=== PATIENT | male | born 1960 | race Caucasian/White ===

== ENCOUNTER 2016-09-11 03:19 | Emergency (ER) | payer MEDICAID ==
[~2016-09-11 03:19] MED LIST: ceFAZolin 2 GM PREMIX 50 ML ONE
[2016-09-11] MEDS ORDERED: DIPHTH/TETANUS/ACEL PERTUSSIS (BOOSTER) 0.5 ML VIAL/PFS IM ONE (03:25)
[2016-09-11] MEDS ORDERED: LIDOCAINE 1%/EPINEPHrine 1:100,000 SOLN 30 ML VIAL ONE (03:25)
[2016-09-11 03:30] VITALS: O2SAT 99
[2016-09-11 03:49] LABS: I-STAT POTASSIUM 4.4 MMOL/L (3.5-4.9)
[2016-09-11 03:50] LABS: BASOPHIL # 0.1 TH/MM3 (0-0.2); BASOPHIL % 1.4 % (0.0-2.0); EOSINOPHIL # 0.2 TH/MM3 (0-0.4); EOSINOPHIL % 2.3 % (0.0-4.0); HEMATOCRIT 41.6 % (39.0-51.0); HEMO FLAGS DIFF FINAL; LYMPH % 24.1 % (9.0-44.0); LYMPHOCYTE # 2.2 TH/MM3 (1.0-4.8); MEAN CELL VOLUME 99.7 FL (80.0-100.0); MEAN CORPUSCULAR HEMOGLOBIN 34.8 PG (27.0-34.0); MEAN CORPUSCULAR HGB CONC 34.9 % (32.0-36.0); MONO % 6.6 % (0.0-8.0); NEUT % 65.6 % (16.0-70.0); PLATELET COUNT 274 TH/MM3 (150-450); RED BLOOD COUNT 4.17 MIL/MM3 (4.50-5.90); WHITE BLOOD COUNT 9.1 TH/MM3 (4.0-11.0)
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
[2016-09-11 04:14] LABS: APTT (PATIENT) 25.2 SEC (24.3-30.1); INTERNATIONAL NORMALIZED RATIO 0.9 RATIO; PROTHROMBIN TIME - PATIENT 9.9 SEC (9.8-11.6)
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
[2016-09-11 05:25] VITALS: BP 130/74
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
== END 2016-09-11 05:26 | disposition home or self-care (01) ==
LOC: EDBD 03:19 → NEPI 03:19 → NEPE 05:26
DX: S41.012A Laceration without foreign body of left shoulder, initial encounter (principal); S01.01XA Laceration without foreign body of scalp, initial encounter; S01.511A Laceration without foreign body of lip, initial encounter; Z72.0 Tobacco use; X99.8XXA Assault by other sharp object, initial encounter
CPT/HCPCS: 12014; 70450; 70486; 71010; 82435; 82565; 82947; 84132; 84295; 84520; 85025; 85610; 85730; 86850; 86900; 86901; 90471; 90715; 96374; 99291; J0690; G0390

== ENCOUNTER 2016-09-29 20:11 | Emergency (ER) | payer MEDICAID, OTHER ==
[~2016-09-29] VITALS: Ht 182.9 cm; Wt 75.0 kg
[2016-09-29 20:29] VITALS: BP 141/74; PULSE 91; RESP 16; TEMP 98.5; O2SAT 98
[2016-09-29] MEDS ORDERED: TRAZ50TA12 PO (20:40)
[2016-09-29] MEDS ORDERED: VENTAER INH (20:40)
[2016-09-29] MEDS ORDERED: REME15TA PO (20:40)
[2016-09-29 20:44] LABS: AUTOMATED NEUTROPHIL # 5.9 TH/MM3 (1.8-7.7); BASOPHIL # 0.4 TH/MM3 (0-0.2); BASOPHIL % 3.8 % (0.0-2.0); EOSINOPHIL # 0.2 TH/MM3 (0-0.4); EOSINOPHIL % 1.7 % (0.0-4.0); HEMATOCRIT 38.4 % (39.0-51.0); LYMPH % 23.7 % (9.0-44.0); LYMPHOCYTE # 2.2 TH/MM3 (1.0-4.8); MEAN CELL VOLUME 99.8 FL (80.0-100.0); MEAN CORPUSCULAR HEMOGLOBIN 34.8 PG (27.0-34.0); MEAN CORPUSCULAR HGB CONC 34.9 % (32.0-36.0); MONO % 7.5 % (0.0-8.0); NEUT % 63.3 % (16.0-70.0); PLATELET COUNT 321 TH/MM3 (150-450); RED BLOOD COUNT 3.84 MIL/MM3 (4.50-5.90); RED CELL DISTRIBUTION WIDTH 15.2 % (11.6-17.2); WHITE BLOOD COUNT 9.4 TH/MM3 (4.0-11.0)
[2016-09-29 20:48] LABS: AMPHETAMINE, URINE NEG (NEG); BARBITURATES, URINE NEG (NEG); COCAINE, URINE NEG (NEG); HEMO FLAGS DIFF FINAL
[2016-09-29 21:08] LABS: ANION GAP 12 MEQ/L (5-15); AST (GOT) 56 U/L (15-37); BICARBONATE 23.2 MEQ/L (21.0-32.0); BLOOD UREA NITROGEN 20 MG/DL (7-18); CHLORIDE 102 MEQ/L (98-107); GLOMERULAR FILTRATION RATE 53 ML/MIN (>89); POTASSIUM 4.1 MEQ/L (3.5-5.1); SODIUM (NA) 137 MEQ/L (136-145)
[2016-09-29 21:11] LABS: ALKALINE PHOSPHATASE 77 U/L (45-117); ALT (GPT) 60 U/L (12-78); TOTAL BILIRUBIN ADULT 0.3 MG/DL (0.2-1.0)
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
[2016-09-30 01:01] VITALS: BP 151/87; PULSE 89; RESP 18; TEMP 98.7; O2SAT 98
[2016-09-30 02:22] VITALS: BP 128/75; PULSE 88; RESP 18; O2SAT 98
[2016-09-30 06:15] VITALS: BP 142/69; PULSE 71; RESP 18; TEMP 98.6; O2SAT 99
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
== END 2016-09-30 08:37 | disposition home or self-care (01) ==
LOC: NEPA 20:11 → NEPJ 09-30 08:37
DX: F32.9 Major depressive disorder, single episode, unspecified (principal); F10.10 Alcohol abuse, uncomplicated; J44.9 Chronic obstructive pulmonary disease, unspecified; I10 Essential (primary) hypertension; Z72.0 Tobacco use
CPT/HCPCS: 80053; 80307; 80320; 85025; 99285

== ENCOUNTER 2017-02-27 03:11 | Emergency (ER) | payer MEDICAID, OTHER ==
[~2017-02-27 03:11] MED LIST changes: +REME15TA PO; +TRAZ50TA12 PO; +VENTAER INH; -ceFAZolin 2 GM PREMIX 50 ML ONE
--- NOTE | 2017-02-27 03:24 | PD ---
HPI Chief Complaint: psychiatric evaluation Time Seen by Provider: 03:23 Travel History International Travel<30 days: No Contact w/Intl Traveler<30days: No History of Present Illness HPI Patient comes in under Harrell act by police for suicidal ideations. Patient admits to this. Patient reports he was planning on taking all of his blood pressure medication. Patient reports history of suicide attempts. Patient denies any medical concerns this time. Denies any chest pain, shortness breath , nausea, abdominal pain, fevers, or other concerns. Patient denies anything making his symptoms better or worse. PFSH Past Medical History COPD: Yes Hypertension: Yes Past Surgical History Body Medical Devices: STEEL PLATE L. ORBITAL Social History Alcohol Use: Yes Tobacco Use: Yes Substance Use: Yes (ALCOHOL) Allergies-Medications (Allergen,Severity, Reaction): Coded Allergies: No Known Allergies (Unverified , 09/29/16) Reported Meds & Prescriptions Reported Meds & Active Scripts Active Reported Trazodone (Trazodone HCl) 50 Mg Tab 50 Mg PO HS Remeron (Mirtazapine) 15 Mg Tab 15 Mg PO HS Ventolin Hfa 18 GM Inh (Albuterol Sulfate) 90 Mcg/Act Aer 2 Puff INH Q4-6H PRN Review of Systems ROS Limitations: Intoxication Except as stated in HPI: all other systems reviewed are Neg Physical Exam Exam Limitations: Intoxication Narrative GENERAL: Well-developed, overly nourished, in no acute distress, and non-ill appearing. SKIN: Focused skin assessment warm and dry. HEAD: Atraumatic. Normocephalic. EYES: Pupils equal and round. EOMI. No scleral icterus. No injection or drainage. ENT: No nasal bleeding or discharge. Mucous membranes pink and moist. NECK: Trachea midline. Supple. No nuclear rigidity. CARDIOVASCULAR: Regular rate and rhythm. No murmur appreciated. RESPIRATORY: No accessory muscle use. No respiratory distress. Clear to auscultation. Breath sounds equal bilaterally. MUSCULOSKELETAL: No obvious deformities. No clubbing. No cyanosis. No edema. Full range of motion. NEUROLOGICAL: Awake and alert. No obvious cranial nerve deficits. Motor grossly within normal limits. Slurring speech. PSYCHIATRIC: Appropriate mood and affect. Data Data Last Documented VS Vital Signs Date Time Temp Pulse Resp B/P Pulse Ox O2 Delivery O2 Flow Rate FiO2 02/27/17 03:29 97.7 91 16 109/64 95 Orders Complete Blood Count With Diff (02/27/17 03:22) Comprehensive Metabolic Panel (02/27/17 03:22) Psych Screen (02/27/17 03:22) Drug Screen, Random Urine (02/27/17 03:22) Alcohol (Ethanol) (02/27/17 03:22) Salicylates (Aspirin) (02/27/17 03:22) Tylenol (Acetaminophen) (02/27/17 03:22) Labs Laboratory Tests Test 02/27/17 02/27/17 03:45 03:55 White Blood Count 11.1 TH/MM3 Red Blood Count 3.63 MIL/MM3 Hemoglobin 12.6 GM/DL Hematocrit 36.3 % Mean Corpuscular Volume 100.1 FL Mean Corpuscular Hemoglobin 34.8 PG Mean Corpuscular Hemoglobin 34.8 % Concent Red Cell Distribution Width 14.1 % Platelet Count 354 TH/MM3 Mean Platelet Volume 7.4 FL Neutrophils (%) (Auto) 55.8 % Lymphocytes (%) (Auto) 31.5 % Monocytes (%) (Auto) 9.2 % Eosinophils (%) (Auto) 2.1 % Basophils (%) (Auto) 1.4 % Neutrophils # (Auto) 6.2 TH/MM3 Lymphocytes # (Auto) 3.5 TH/MM3 Monocytes # (Auto) 1.0 TH/MM3 Eosinophils # (Auto) 0.2 TH/MM3 Basophils # (Auto) 0.2 TH/MM3 CBC Comment DIFF FINAL Differential Comment Sodium Level 139 MEQ/L Potassium Level 3.9 MEQ/L Chloride Level 108 MEQ/L Carbon Dioxide Level 19.4 MEQ/L Anion Gap 12 MEQ/L Blood Urea Nitrogen 20 MG/DL Creatinine 1.27 MG/DL Estimat Glomerular Filtration 58 ML/MIN Rate Random Glucose 81 MG/DL Calcium Level 9.3 MG/DL Total Bilirubin LESS THAN 0.1 MG/DL Aspartate Amino Transf 30 U/L (AST/SGOT) Alanine Aminotransferase 37 U/L (ALT/SGPT) Alkaline Phosphatase 73 U/L Total Protein 7.7 GM/DL Albumin 3.6 GM/DL Salicylates Level 6.0 MG/DL Acetaminophen Level LESS THAN 2.0 MCG/ML Ethyl Alcohol Level 307 MG/DL Urine Opiates Screen NEG Urine Barbiturates Screen NEG Urine Amphetamines Screen NEG Urine Benzodiazepines Screen NEG Urine Cocaine Screen NEG Urine Cannabinoids Screen NEG MDM Medical Decision Making Medical Screen Exam Complete: Yes Emergency Medical Condition: Yes Differential Diagnosis Homicidal, suicidal, alcohol intoxication, substance abuse, other Narrative Course Patient was seen and examined. Labs were obtained and reviewed. Patient medically cleared for further treatment and evaluation by psych. Final disposition per psych. Diagnosis Primary Impression: Alcohol intoxication Qualified Code: F10.920 - Alcohol intoxication, uncomplicated Additional Impression: Medical clearance for psychiatric admission Condition: Stable Terrell Tang Feb 27, 2017 03:24
[2017-02-27 03:29] VITALS: BP 109/64; PULSE 91; RESP 16; TEMP 97.7; O2SAT 95
[2017-02-27 04:02] LABS: AUTOMATED NEUTROPHIL # 6.2 TH/MM3 (1.8-7.7); BASOPHIL # 0.2 TH/MM3 (0-0.2); BASOPHIL % 1.4 % (0.0-2.0); EOSINOPHIL # 0.2 TH/MM3 (0-0.4); EOSINOPHIL % 2.1 % (0.0-4.0); HEMATOCRIT 36.3 % (39.0-51.0); HEMO FLAGS DIFF FINAL; LYMPH % 31.5 % (9.0-44.0); LYMPHOCYTE # 3.5 TH/MM3 (1.0-4.8); MEAN CELL VOLUME 100.1 FL (80.0-100.0); MEAN CORPUSCULAR HEMOGLOBIN 34.8 PG (27.0-34.0); MEAN CORPUSCULAR HGB CONC 34.8 % (32.0-36.0); MONO % 9.2 % (0.0-8.0); NEUT % 55.8 % (16.0-70.0); PLATELET COUNT 354 TH/MM3 (150-450); RED BLOOD COUNT 3.63 MIL/MM3 (4.50-5.90); RED CELL DISTRIBUTION WIDTH 14.1 % (11.6-17.2); WHITE BLOOD COUNT 11.1 TH/MM3 (4.0-11.0)
[2017-02-27 04:24] LABS: ALKALINE PHOSPHATASE 73 U/L (45-117); TOTAL BILIRUBIN ADULT LESS THAN 0.1 MG/DL (0.2-1.0)
[2017-02-27 04:34] LABS: AMPHETAMINE, URINE NEG (NEG); BARBITURATES, URINE NEG (NEG); COCAINE, URINE NEG (NEG)
[2017-02-27 04:42] LABS: ALT (GPT) 37 U/L (12-78); ANION GAP 12 MEQ/L (5-15); AST (GOT) 30 U/L (15-37); BICARBONATE 19.4 MEQ/L (21.0-32.0); BLOOD UREA NITROGEN 20 MG/DL (7-18); CHLORIDE 108 MEQ/L (98-107); GLOMERULAR FILTRATION RATE 58 ML/MIN (>89); POTASSIUM 3.9 MEQ/L (3.5-5.1); SODIUM (NA) 139 MEQ/L (136-145)
[2017-02-27 04:45] LABS: ACETAMINOPHEN LESS THAN 2.0 MCG/ML (10.0-30.0)
[2017-02-27] MEDS ORDERED: LORazepam 2 MG TAB PO PRN (05:00)
[2017-02-27] MEDS ORDERED: LORazepam 1 MG TAB PO PRN (05:00)
[2017-02-27] MEDS ORDERED: LORazepam 2 MG/ML VIAL IV PUSH PRN ×4 (05:00)
[2017-02-27] MEDS ORDERED: FLUMAZENIL 0.5 MG/5 ML VIAL IV PUSH PRN (05:00)
[2017-02-27 06:17] VITALS: BP 112/74; PULSE 69; RESP 16; O2SAT 100
[2017-02-27 13:18] VITALS: BP 115/78; PULSE 78; RESP 18; O2SAT 97
[2017-02-27] MEDS ORDERED: AMLO5CAP3 PO (14:34)
[2017-02-27] MEDS ORDERED: LISI-515 PO (14:34)
[2017-02-27 22:04] VITALS: BP 160/91; PULSE 72; RESP 18; O2SAT 98
[2017-02-28] MEDS ORDERED: ACETAMINOPHEN 500 MG CPLT PO ONE (02:15)
[2017-02-28 02:40] VITALS: BP 181/100; PULSE 92; RESP 18; O2SAT 99
[2017-02-28 04:14] VITALS: BP 145/90; PULSE 98; RESP 18; O2SAT 98
[2017-02-28 06:14] VITALS: BP 152/81; PULSE 78; RESP 17; O2SAT 99
[2017-02-28 10:00] VITALS: BP 184/96; PULSE 72; RESP 18
[2017-02-28 14:10] VITALS: BP 142/90; TEMP 97.3
--- NOTE | 2017-02-28 15:27 | PD.PSY.CON ---
Provisional Diagnosis Admission Date Woodward I. Alcohol induced mood disorder, alcohol use disorder, history of PTSD, Woodward II. Deferred Woodward III. No significant medical his History of Present Illness Service Psychiatry Consult Requested By Primary Care Physician Unknown HPI The patient is a 56-year-old man, domiciled alone in [place], unemployed, on SSI, with secondary history of PTSD, alcohol use disorder, multiple psychiatric hospitalizations, previous suicidal attempts, he is on Remeron 30 mg, [id number] mg prescribed by PCP no significant medical history. Patient comes in under Harrell act by police for suicidal ideations. Patient admits to this. Patient reports he was planning on taking all of his blood pressure medication. However today on psychiatric evaluation patient reports that yesterday he was just drunk, he has recently ended a relationship with his boyfriend and he has been feeling down, yesterday his best friend didn' t come to visit and support him and he feels rejected. He admits that he was drunk. Now he feels much better, denies suicidal ideation, denies visual and auditory hallucinations. Oriented 3. Review of Systems Constitutional: DENIES: Diaphoretic episodes, Fatigue, Fever, Weight gain, Weight loss, Chills, Dizziness, Change in appetite, Night Sweats Endocrine: DENIES: Heat/cold intolerance, Polydipsia, Polyuria, Polyphagia Eyes: DENIES: Blurred vision, Diplopia, Eye inflammation, Eye pain, Vision loss , Photosensitivity, Double Vision Ears, nose, mouth, throat: DENIES: Tinnitus, Hearing loss, Vertigo, Nasal discharge, Oral lesions, Throat pain, Hoarseness, Ear Pain, Running Nose, Epistaxis, Sinus Pain, Toothache, Odynophagia Respiratory: DENIES: Apneas, Cough, Snoring, Wheezing, Hemoptysis, Sputum production, Shortness of breath Cardiovascular: DENIES: Chest pain, Palpitations, Syncope, Dyspnea on Exertion , PND, Lower Extremity Edema, Orthopnea, Claudication Gastrointestinal: DENIES: Abdominal pain, Black stools, Bloody stools, Constipation, Diarrhea, Nausea, Vomiting, Difficulty Swallowing, Anorexia Genitourinary: DENIES: Sexual dysfunction, Urinary frequency, Urinary incontinence, Urgency, Hematuria, Dysuria, Nocturia, Penile Discharge, Testicular Pain, Testicular Swelling Musculoskeletal: DENIES: Joint pain, Muscle aches, Stiffness, Joint Swelling, Back pain, Neck pain Integumentary: DENIES: Abnormal pigmentation, Nail changes, Pruritus, Rash Hematologic/lymphatic: DENIES: Bruising, Lymphadenopathy Immunologic/allergic: DENIES: Eczema, Urticaria Neurologic: DENIES: Abnormal gait, Headache, Localized weakness, Paresthesias, Seizures, Speech Problems, Tremor, Poor Balance Psychiatric: DENIES: Anxiety, Confusion, Mood changes, Depression, Hallucinations, Agitation, Suicidal Ideation, Homicidal Ideation, Delusions Past Family Social History Coded Allergies: No Known Allergies (Unverified , 09/29/16) Reported Medications Amlodipine-Benazepril 5-20 Mg Cap1 Cap PO DAILY #30 CAP Ref 0 02/27/17 Lisinopril 20 Mg Tab20 Mg PO DAILY #30 TAB Ref 0 02/27/17 Trazodone 50 Mg Tab50 Mg PO HS #30 TAB Ref 0 09/29/16 Mirtazapine (Remeron)15 Mg Tab15 Mg PO HS #30 TAB Ref 0 09/29/16 Albuterol 18 GM Inh (Ventolin Hfa 18 GM Inh)90 Mcg/Act Aer2 Puff INH Q4-6H PRN ( SHORTNESS OF BREATH) #1 INHALER Ref 0 09/29/16 Current Medications Medications (Trade) Dose Ordered Sig/Johnnie Route Start Time Stop Time Status Last Admin (Romazicon Inj) 0.2 mg Q1M PRN IV PUSH 02/27/17 05:00 (Ativan) 1 mg Q4H PRN PO 02/27/17 05:00 (Ativan Inj) 1 mg Q4H PRN IV PUSH 02/27/17 05:00 (Ativan) 2 mg Q2H PRN PO 02/27/17 05:00 02/28/17 02:48 (Ativan Inj) 2 mg Q2H PRN IV PUSH 02/27/17 05:00 (Ativan Inj) 2 mg Q1H PRN IV PUSH 02/27/17 05:00 (Ativan Inj) 2 mg Q15M PRN IV PUSH 02/27/17 05:00 Family History He denies family significant history Social History Patient was born in [facility], he is in [place] alone, is unemployed, on SSI Patient's Strengths (min. 2) Verbal communication Physical Exam Vital Signs Vital Signs Date Time Temp Pulse Resp B/P Pulse Ox O2 Delivery O2 Flow Rate FiO2 02/28/17 14:10 97.3 88 20 142/90 02/28/17 10:00 Room Air 02/28/17 06:14 99 Lab Results Labs Laboratory Tests Test 02/27/17 02/27/17 03:45 03:55 White Blood Count 11.1 TH/MM3 Red Blood Count 3.63 MIL/MM3 Hemoglobin 12.6 GM/DL Hematocrit 36.3 % Mean Corpuscular Volume 100.1 FL Mean Corpuscular Hemoglobin 34.8 PG Mean Corpuscular Hemoglobin 34.8 % Concent Red Cell Distribution Width 14.1 % Platelet Count 354 TH/MM3 Mean Platelet Volume 7.4 FL Neutrophils (%) (Auto) 55.8 % Lymphocytes (%) (Auto) 31.5 % Monocytes (%) (Auto) 9.2 % Eosinophils (%) (Auto) 2.1 % Basophils (%) (Auto) 1.4 % Neutrophils # (Auto) 6.2 TH/MM3 Lymphocytes # (Auto) 3.5 TH/MM3 Monocytes # (Auto) 1.0 TH/MM3 Eosinophils # (Auto) 0.2 TH/MM3 Basophils # (Auto) 0.2 TH/MM3 CBC Comment DIFF FINAL Differential Comment Sodium Level 139 MEQ/L Potassium Level 3.9 MEQ/L Chloride Level 108 MEQ/L Carbon Dioxide Level 19.4 MEQ/L Anion Gap 12 MEQ/L Blood Urea Nitrogen 20 MG/DL Creatinine 1.27 MG/DL Estimat Glomerular Filtration 58 ML/MIN Rate Random Glucose 81 MG/DL Calcium Level 9.3 MG/DL Total Bilirubin LESS THAN 0.1 MG/DL Aspartate Amino Transf 30 U/L (AST/SGOT) Alanine Aminotransferase 37 U/L (ALT/SGPT) Alkaline Phosphatase 73 U/L Total Protein 7.7 GM/DL Albumin 3.6 GM/DL Salicylates Level 6.0 MG/DL Acetaminophen Level LESS THAN 2.0 MCG/ML Ethyl Alcohol Level 307 MG/DL Urine Opiates Screen NEG Urine Barbiturates Screen NEG Urine Amphetamines Screen NEG Urine Benzodiazepines Screen NEG Urine Cocaine Screen NEG Urine Cannabinoids Screen NEG Mental Status Examination Appearance man, [facility], age appearing, cooperative and calm Speech: Unremarkable Memory: Unremarkable Thought Process: Logical Thought Content: Unremarkable Hallucination Type: None Suicidal Ideation: No Previous Suicide Attempts: Yes Homicidal Ideation: No Previous Homicide Attempts: No Judgment: WNL Affect: Good Mood: Euthymic Motor Activity: Normal gait Assessment & Plan Problem List: (1) Alcohol-induced mood disorder Assessment & Plan: At the moment of this evaluation the patient does not present any acute psychiatric symptoms that require an immediate psychiatric intervention or hospitalization. Harrell act would be lifted. ICD Code: F10.94 Assessment & Plan Estimated LOS: Bhargav Bowman MD Feb 28, 2017 15:27
== END 2017-02-28 14:15 | disposition home or self-care (01) ==
LOC: NEPD 03:11 → NEPJ 02-28 14:15
DX: F10.920 Alcohol use, unspecified with intoxication, uncomplicated (principal); I10 Essential (primary) hypertension; Y90.8 Blood alcohol level of 240 mg/100 ml or more; Z72.0 Tobacco use; Z79.899 Other long term (current) drug therapy
CPT/HCPCS: 80053; 80307; 85025; 99283

== ENCOUNTER 2017-07-22 01:46 | Emergency (ER) | payer MEDICAID, OTHER ==
[~2017-07-22] VITALS: Ht 185.4 cm; Wt 82.0 kg
[~2017-07-22 01:46] MED LIST changes: +AMLO5CAP3 PO; +LISI-515 PO
[2017-07-22 02:01] VITALS: BP 154/104; PULSE 106; RESP 16; O2SAT 100
[2017-07-22] MEDS ORDERED: HALOPERIDOL LACTATE 5 MG/ML AMP IM ONE (02:15)
[2017-07-22] MEDS ORDERED: LORazepam 2 MG/ML VIAL IM ONE (02:15)
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
[2017-07-22 06:26] VITALS: BP 175/90; PULSE 88; RESP 18; TEMP 98.5; O2SAT 97
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
--- NOTE | 2017-07-22 10:30 | PD ---
Physical Exam Time Seen by Provider: 10:28 Narrative HARITHA Miguel has evaluated the patient, but the Sharri act and cleared the patient for discharge. Data Data Last Documented VS Vital Signs Date Time Temp Pulse Resp B/P (MAP) Pulse Ox O2 Delivery O2 Flow Rate FiO2 07/22/17 06:26 98.5 88 18 175/90 (118) 97 Room Air Orders Orders Haloperidol Inj (Haldol Inj) (07/22/17 02:15) Lorazepam Inj (Ativan Inj) (07/22/17 02:15) Psych Screen (07/22/17 02:36) Drug Screen, Random Urine (07/22/17 06:28) Diet Regular Basic (07/22/17 Breakfast) Labs Laboratory Tests Test 07/22/17 06:37 Urine Opiates Screen NEG Urine Barbiturates Screen NEG Urine Amphetamines Screen NEG Urine Benzodiazepines Screen NEG Urine Cocaine Screen NEG Urine Cannabinoids Screen NEG MDM Supervised Visit with DANG: No Narrative Course HARITHA Miguel has evaluated the patient, but the Sharri act and cleared the patient for discharge. Patient contracts safety. Denies suicidal or homicidal ideations. Patient will be provided community resource packet to [facility] for follow-up. Has friends and family for support. Patient was medically cleared by alternate provider prior to psych screening. Patient has been evaluated by psychiatry and and is now cleared for discharge. Diagnosis Primary Impression: Medical clearance for psychiatric admission Additional Impression: Alcohol intoxication Qualified Codes: F10.920 - Alcohol use, unspecified with intoxication, uncomplicated Referrals: [facility] (Out patient) [facility] Primary Care Physician Psychiatrist Tracey [facility] Patient Instructions: Abuse of Alcohol (ED), Alcohol Intoxication (ED), General Instructions Additional Instruction: Contract safety to your self and others Stop drinking alcohol Follow-up with psychiatry Follow-up with primary care provider Follow-up with [facility] Return to the emergency department immediately with worsening of symptoms Med/Other Pt SpecificInfo: No Change to Meds, No Meds Exist/No RX given Disposition: 01 DISCHARGE HOME Condition: Stable Macrina Major Jul 22, 2017 10:30
== END 2017-07-22 11:07 | disposition home or self-care (01) ==
LOC: NEPD 01:46 → NEPJ 11:07
DX: F10.129 Alcohol abuse with intoxication, unspecified (principal); F43.10 Post-traumatic stress disorder, unspecified; J44.9 Chronic obstructive pulmonary disease, unspecified; I10 Essential (primary) hypertension; Z79.899 Other long term (current) drug therapy; Z72.0 Tobacco use
CPT/HCPCS: 80307; 99283

== ENCOUNTER 2017-08-19 02:06 | Emergency (ER) | payer MEDICAID, OTHER ==
[~2017-08-19] VITALS: Ht 170.2 cm; Wt 70.0 kg
[2017-08-19 02:20] VITALS: BP 146/107; PULSE 88; RESP 16; TEMP 98.9; O2SAT 98
[2017-08-19 03:30] LABS: ALKALINE PHOSPHATASE 91 U/L (45-117); TOTAL PROTEIN 8.3 GM/DL (6.4-8.2)
[2017-08-19 03:33] LABS: ALT (GPT) 20 U/L (12-78); AST (GOT) 29 U/L (15-37); BICARBONATE 26.8 MEQ/L (21.0-32.0); BLOOD UREA NITROGEN 16 MG/DL (7-18); CALCIUM 8.6 MG/DL (8.5-10.1); CHLORIDE 109 MEQ/L (98-107); CREATININE 1.12 MG/DL (0.60-1.30); GLOMERULAR FILTRATION RATE 67 ML/MIN (>89); GLUCOSE,RANDOM 82 MG/DL (74-106); SODIUM (NA) 144 MEQ/L (136-145); TOTAL BILIRUBIN ADULT 0.2 MG/DL (0.2-1.0)
[2017-08-19 03:34] LABS: ACETAMINOPHEN LESS THAN 2.0 MCG/ML (10.0-30.0)
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
[2017-08-19 05:12] LABS: AUTOMATED NEUTROPHIL # 2.9 TH/MM3 (1.8-7.7); BASOPHIL % 0.2 % (0.0-2.0); EOSINOPHIL # 0.3 TH/MM3 (0-0.4); EOSINOPHIL % 4.7 % (0.0-4.0); HEMATOCRIT 37.2 % (39.0-51.0); HEMOGLOBIN 12.9 GM/DL (13.0-17.0); LYMPH % 45.4 % (9.0-44.0); LYMPHOCYTE # 3.1 TH/MM3 (1.0-4.8); MEAN CELL VOLUME 93.8 FL (80.0-100.0); MEAN CORPUSCULAR HEMOGLOBIN 32.6 PG (27.0-34.0); MEAN CORPUSCULAR HGB CONC 34.7 % (32.0-36.0); MEAN PLATELET VOLUME 6.7 FL (7.0-11.0); MONO % 7.1 % (0.0-8.0); MONOCYTE # 0.5 TH/MM3 (0-0.9); NEUT % 42.6 % (16.0-70.0); PLATELET COUNT 309 TH/MM3 (150-450); RED BLOOD COUNT 3.97 MIL/MM3 (4.50-5.90); RED CELL DISTRIBUTION WIDTH 14.9 % (11.6-17.2); WHITE BLOOD COUNT 6.9 TH/MM3 (4.0-11.0)
[2017-08-19 07:19] VITALS: BP 107/59; PULSE 94; RESP 16; O2SAT 96
--- NOTE | 2017-08-19 11:20 | PD ---
Physical Exam Date Seen by Provider: Aug 19, 2017 Time Seen by Provider: 11:20 Narrative 57 year old male patient presents to our facility as larson act. He has been cleared medically and psychiatrically. The larson act has been lifted by the psychiatrist. Data Data Last Documented VS Vital Signs Date Time Temp Pulse Resp B/P (MAP) Pulse Ox O2 Delivery O2 Flow Rate FiO2 08/19/17 11:22 08/19/17 07:19 94 16 96 Room Air 08/19/17 02:20 98.9 Orders Orders Complete Blood Count With Diff (08/19/17 02:43) Comprehensive Metabolic Panel (08/19/17 02:43) Thyroid Stimulating Hormone (08/19/17 02:43) Urinalysis - C+S If Indicated (08/19/17 02:43) Psych Screen (08/19/17 02:43) Drug Screen, Random Urine (08/19/17 02:43) Alcohol (Ethanol) (08/19/17 02:43) Salicylates (Aspirin) (08/19/17 02:43) Tylenol (Acetaminophen) (08/19/17 02:43) Diet Regular Basic (08/19/17 Breakfast) Ed Discharge Order (08/19/17 11:20) Labs Laboratory Tests Test 08/19/17 02:50 08/19/17 05:00 Blood Urea Nitrogen 16 MG/DL Creatinine 1.12 MG/DL Random Glucose 82 MG/DL Total Protein 8.3 GM/DL Albumin 4.0 GM/DL Calcium Level 8.6 MG/DL Alkaline Phosphatase 91 U/L Aspartate Amino Transf (AST/SGOT) 29 U/L Alanine Aminotransferase (ALT/SGPT) 20 U/L Total Bilirubin 0.2 MG/DL Sodium Level 144 MEQ/L Potassium Level 4.3 MEQ/L Chloride Level 109 MEQ/L Carbon Dioxide Level 26.8 MEQ/L Anion Gap 8 MEQ/L Estimat Glomerular Filtration Rate 67 ML/MIN Thyroid Stimulating Hormone 3rd Gen 2.220 uIU/ML Salicylates Level 3.3 MG/DL Acetaminophen Level LESS THAN 2.0 MCG/ML Ethyl Alcohol Level 329 MG/DL White Blood Count 6.9 TH/MM3 Red Blood Count 3.97 MIL/MM3 Hemoglobin 12.9 GM/DL Hematocrit 37.2 % Mean Corpuscular Volume 93.8 FL Mean Corpuscular Hemoglobin 32.6 PG Mean Corpuscular Hemoglobin Concent 34.7 % Red Cell Distribution Width 14.9 % Platelet Count 309 TH/MM3 Mean Platelet Volume 6.7 FL Neutrophils (%) (Auto) 42.6 % Lymphocytes (%) (Auto) 45.4 % Monocytes (%) (Auto) 7.1 % Eosinophils (%) (Auto) 4.7 % Basophils (%) (Auto) 0.2 % Neutrophils # (Auto) 2.9 TH/MM3 Lymphocytes # (Auto) 3.1 TH/MM3 Monocytes # (Auto) 0.5 TH/MM3 Eosinophils # (Auto) 0.3 TH/MM3 Basophils # (Auto) 0.0 TH/MM3 CBC Comment DIFF FINAL Differential Comment MDM Supervised Visit with DANG: Yes Differential Diagnosis Depression versus suicidal ideation versus anxiety versus adjustment disorder versus mood disorder versus bipolar disorder versus schizophrenia versus paranoid disorder versus psychosis versus substance abuse versus alcohol abuse versus alcohol induced psychosis versus homicidality addition versus cutting versus personality disorder Narrative Course 57 year old male patient presents to our facility as larson act. He has been cleared medically and psychiatrically. The larson act has been lifted by the psychiatrist. I have been asked to disposition the patient. No homicidal or suicidal ideation at this time. Patient will be discharged home at this time. Diagnosis Primary Impression: Depression with suicidal ideation Additional Impression: Substance induced mood disorder Disposition: 01 DISCHARGE HOME Condition: Stable Domi Rajput Aug 19, 2017 11:20
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
== END 2017-08-19 11:47 | disposition home or self-care (01) ==
LOC: NEPC 02:06 → NEPD 11:47
DX: F32.9 Major depressive disorder, single episode, unspecified (principal); F19.94 Other psychoactive substance use, unspecified with psychoactive substance-induced mood disorder; I10 Essential (primary) hypertension; J44.9 Chronic obstructive pulmonary disease, unspecified; Z72.0 Tobacco use; Z79.899 Other long term (current) drug therapy
CPT/HCPCS: 80053; 80307; 84443; 85025; 99283